=== PATIENT | male | born 1950 | race Caucasian/White ===

== ENCOUNTER 2019-06-23 10:03 | Outpatient (CLI) | payer MEDICARE, BC, SELFPAY | END 2019-06-23 10:04 | disposition home or self-care (01) | PROVIDERS: PCP Physician Assistant; Visit Provider Internal Medicine Gastroenterology | DX: Z01.812 Encounter for preprocedural laboratory examination (principal); Z20.828 Contact with and (suspected) exposure to other viral communicable diseases | CPT/HCPCS: 87635; C9803; U0003 ==

== ENCOUNTER 2019-06-26 01:02 | Day surgery (SDC) | payer MEDICARE, SELFPAY ==
[2019-06-20 15:01] VITALS: BMI 23.6
[2019-06-26 08:39] VITALS: BP 121/68; PULSE 83; RESP 16; TEMP 36.6; O2SAT 99
[2019-06-26] MEDS: LACTATED RINGERS 1,000 ML 150 ML IV CONT (08:56)
[2019-06-26 08:57] LABS: Glucose Point of Care 123 (65-105)
--- NOTE | 2019-06-26 08:59 | WPDANESEPPF ---
Anes - Initial Pre Proc Eval Procedure: Operation Date: 06/26/19 09:30 Proposed Procedures p Screening Colonoscopy - Marcell Kay DO Date/Time: 06/26/19 08:59 Surgeon: Marcell Kay DO Pre Op Diagnosis: Hx Colon Polyps Patient Data Age: 69 Gender: M Height: 1.83 m Weight: 76.5 kg Last Vital Signs Temp 36.6 C 06/26/19 08:39 Pulse 83 06/26/19 08:39 Resp 16 06/26/19 08:39 BP 121/68 06/26/19 08:39 Pulse Ox 99 06/26/19 08:39 Allergies Allergy/AdvReac Type Severity Reaction Status Date / Time tetanus toxoid, adsorbed Allergy Mild Rash Verified 06/26/19 08:38 Home Medications Medication Instructions Recorded Confirmed Type aspirin [Adult Low Dose Aspirin] 81 mg PO DAILY 06/20/19 06/20/19 History lisinopril 10 mg PO DAILY 06/20/19 06/20/19 History metformin 500 mg PO BID 06/20/19 06/20/19 History omega 0-tzc-tkk-fish oil [Fish Oil] 1 cap PO DAILY 06/20/19 06/20/19 History Laboratory Tests 06/26/19 08:49 POC Capillary Glucose 123 mg/dl H mg/dl (65-105) Patient hx anesthesia problems: none Family hx anesthesia problems: none [facility] Past Medical History Medical History (Updated 06/26/19 @ 08:52 by Adriel Sow DO) Diabetes type 2, controlled GERD (gastroesophageal reflux disease) Hepatitis B carrier Renal stones Anes - Eval Final PreProcedure Day of Procedure 06/26/19 08:59 Patient weight: normal Heart: regular rate and rhythm Lungs: clear to auscultation and normal air movement Airway: Mallampati scale class II Neurological: alert and oriented Last oral intake: >/= 8 hours ASA classification: III Emergent: no Anesthetic plan: proceed Anesthesia type and monitoring: general GIVS and standard monitoring Informed Consent: The patient's anesthetic plan and its attendant risks and benefits were discussed with the patient/family/POA. Questions were solicited and answers provided to the satisfaction of the patient/family/POA.
--- NOTE | 2019-06-26 09:34 | PM.IMHP ---
H&P: HPI History of Present Illness Chief complaint: Hx Colon Polyps Narrative: Gagan Marin is a 69 year old male Here for colonoscopy. Impression: Screening and surveillance colonoscopy. The patient has a history of colon polyps. GERD treated with [id number] baking soda. Per past medical history. Recommendation: Colonoscopy. EGD will be scheduled. History: This very pleasant gentleman has negative lower GI review systems. He has a history of colon polyps. He is here for colonoscopy. Does complain of heartburn every couple days. He takes baking soda. Denies any NSAID use. He is here for colonoscopy. General: very pleasant patient in no acute distress. HEENT: Head was normocephalic sclerae is clear mouth without masses neck was supple. Heart: Rate rhythm regular without S3 or S4. Lungs: CTA. Abdomen: Soft with no guarding or rigidity. Bowel sounds were active. Neurologic: Cranial nerves 2 through 12 intact. No focal defects. No clonus. Musculoskeletal system: Revealed no joint tenderness or swelling no muscle atrophy. Extremities: Reveal no significant edema. Skin: Warm and dry with normal turgor. Mental status: intact. Patient is alert and oriented. Review of Systems Review of Systems: All systems reviewed & are unremarkable except as noted in HPI and below PMFSH Past Medical History Medical History Diabetes type 2, controlled GERD (gastroesophageal reflux disease) Hepatitis B carrier Renal stones Tobacco abuse Surgical History Surgical History Hx of colonoscopy Family History Family History (Updated 06/26/19 @ 09:36 by Marcell Kay DO) Father Cancer Mother Heart disease Diabetes mellitus Meds Home Medications and Allergies Home Medications Medication Instructions Recorded Confirmed Type aspirin [Adult Low Dose Aspirin] 81 mg PO DAILY 06/20/19 06/20/19 History lisinopril 10 mg PO DAILY 06/20/19 06/20/19 History metformin 500 mg PO BID 06/20/19 06/20/19 History omega 3-xis-sqg-fish oil [Fish Oil] 1 cap PO DAILY 06/20/19 06/20/19 History Allergies Allergy/AdvReac Type Severity Reaction Status Date / Time tetanus toxoid, adsorbed Allergy Mild Rash Verified 05/21/20 08:38 Vital Signs Vital Signs - 24 hr 06/26/19 08:39 06/26/19 09:23 Temperature 36.6 C Pulse Rate 83 55 L Respiratory Rate 16 19 Blood Pressure 121/68 100/67 Pulse Oximetry 99 98
[2019-06-26 10:07] VITALS: BP 95/49; PULSE 68; RESP 26; O2SAT 98
--- NOTE | 2019-06-26 10:14 | SUR.OPER ---
RESOLUTION CLIP LOT [id number] EXP
[2019-06-26 10:17] VITALS: BP 115/68; PULSE 65; RESP 21; O2SAT 100
[2019-06-26 10:27] VITALS: BP 121/68; PULSE 64; RESP 22; O2SAT 100
== END 2019-06-26 10:37 | disposition home or self-care (01) ==
PROVIDERS: PCP Physician Assistant; Visit Provider Internal Medicine Gastroenterology
PROC: 0DJD8ZZ Inspection of Lower Intestinal Tract, Via Natural or Artificial Opening Endoscopic (ICD-10-PCS; CPT 45378; principal; 2019-06-26 09:30)
DX: Z12.11 Encounter for screening for malignant neoplasm of colon (principal); D12.0 Benign neoplasm of cecum; K63.5 Polyp of colon; K57.30 Diverticulosis of large intestine without perforation or abscess without bleeding; E11.9 Type 2 diabetes mellitus without complications; K21.9 Gastro-esophageal reflux disease without esophagitis; B18.1 Chronic viral hepatitis B without delta-agent; Z79.84 Long term (current) use of oral hypoglycemic drugs; Z79.82 Long term (current) use of aspirin
CPT/HCPCS: 45385; 45380; 88305; J2704; J7120

== ENCOUNTER 2024-03-11 08:18 | Outpatient (CLI) | payer MEDICARE, SELFPAY ==
--- NOTE | ~2024-03-11 | XR_ITS ---
Right Knee Technique: AP, lateral, and sunrise views were obtained. Clinical History: Pain Findings: No fracture or dislocation is seen. There is mild medial and lateral compartment degenerati ve change. There is severe patellofemoral compartment degenerative change. There is chondrocalcinosis of the menisci. No joint effusion is seen. Impression: Degenerative change, as above. Chondrocalcinosis of the menisci. Reviewed, dictated and finalized at location M. RT AND EXPORT CLERK Impression: Degenerative change, as above. Chondrocalcinosis of the menisci.
--- NOTE | ~2024-03-11 | XR_ITS ---
Left Knee Technique: AP, lateral, and sunrise views were obtained. Clinical History: Pain Findings: No fracture or dislocation is seen. Osseous alignment is anatomic. Mild tricompartmental de generative change. Soft tissues are unremarkable. No joint effusion is seen. Impression: Mild tricompartmental degenerative change. Reviewed, dictated and finalized at [facility]. ICAL PRODUCTION TECHNICIAN Impression: Mild tricompartmental degenerative change.
== END 2024-03-11 08:19 | disposition home or self-care (01) ==
LOC: MICIMG 08:20
PROVIDERS: PCP Physician Assistant; Visit Provider Physician Assistant
DX: M17.11 Unilateral primary osteoarthritis, right knee (principal); M94.261 Chondromalacia, right knee; M17.12 Unilateral primary osteoarthritis, left knee
CPT/HCPCS: 73562